=== PATIENT | female | born 1975 | race African-American/Black ===

== ENCOUNTER 2025-07-10 18:32 | Emergency (ER) | payer OTHER ==
[~2025-07-10 18:32] MED LIST: Iopamidol 300 61% 100 ML VIAL FS ONE
[2025-07-10 19:31] LABS: #Basophils 0.03 10x3/uL (0.0-0.2); #Eosinophils 0.08 10x3/uL (0.0-0.5); #Monocytes 0.49 10x3/uL (0.0-1.1); #Neutrophils 1.88 10x3/uL (1.5-8.4); %Basophils 0.5 % (0.0-2.0); %Eosinophils 1.3 % (0.0-6.0); %Lymphocytes 58.7 % (18.0-47.0); %Monocytes 8.1 % (0.0-10.0); %Neutrophils 31.2 % (40.0-75.0); Hematocrit 37.2 % (34.9-44.5); Hemoglobin 11.9 g/dL (12.0-15.5); Mean Corpuscular Hemoglobin 27.6 pg (27.0-33.0); Mean Corpuscular Volume 86.3 fL (81.6-98.3); Platelet Count 383 10x3/uL (150-450); Red Blood Cell (RBC) Count 4.31 10x6/uL (3.90-5.03); White Blood Cell (WBC) Count 6.03 10x3/uL (3.5-10.5)
[2025-07-10 20:04] LABS: ALT (SGPT) 34 U/L (Less than 34); AST (SGOT) 46 U/L (11-34); Albumin 3.9 g/dL (3.1-4.5); Alkaline Phosphatase 114 U/L (40-110); Anion Gap 11 mmol/L (10-20); BUN (Urea Nitrogen) 12 mg/dL (7.0-18.7); Bilirubin, Total 0.1 mg/dL (0.3-1.2); Calc. Creatinine Clearance 0 mL/min (70-130); Calcium 9.5 mg/dL (7.8-10.44); Carbon Dioxide 30 mmol/L (22-29); Chloride 104 mmol/L (98-107); Globulin 4.0 g/dL (2.4-3.5); Glucose 86 mg/dL (70-105); Lipase 20 U/L (8-78); Potassium 4.3 mmol/L (3.5-5.1); Sodium 141 mmol/L (136-145)
[2025-07-10] MEDS ORDERED: Ketorolac Tromethamine 30 MG (1 mL) VIAL ONE (20:06)
[2025-07-10] MEDS ORDERED: Ondansetron PF 4 MG/2 ML Vial ONE (20:06)
[2025-07-10 21:28] LABS: Glucose, Urine (Dipstick) Normal (Negative); Leukocyte Negative (Negative); Protein, Urine (Dipstick) Negative (Neg-Trace); Specific Gravity, Urine 1.010 (1.005-1.030)
[2025-07-10 21:41] LABS: CAUTI Indications for Culture Pelvic or flank pain; RBC/HPF 0-3 HPF (0-3); WBC/HPF 0-3 HPF (0-3)
[2025-07-10 21:42] LABS: Bacteria/HPF Rare-Few HPF (None Seen); Urine Culture Reflex No No; Yeast-Budding Rare HPF (None Seen)
== END 2025-07-10 21:53 | disposition home or self-care (01) ==
LOC: CSHERS 18:32
DX: R10.30 Lower abdominal pain, unspecified (principal); R11.0 Nausea; I10 Essential (primary) hypertension
CPT/HCPCS: 36415; 74177; 80053; 81001; 83605; 83690; 85025; 96374; 96375; J1885